=== PATIENT | male | born 1960 | race Caucasian/White ===

== ENCOUNTER 2021-07-01 08:36 | Inpatient (IN) ==
[2021-07-01] MEDS ORDERED: Isovue-370 500 ML BOTTLE IVP ONE ×2 (09:22→09:43)
[2021-07-01] MEDS ORDERED: 0.9 % Sodium Chloride 1,000 ML IVC ONE ×2 (09:22→12:07)
[2021-07-01 09:28] LABS: Basophils % 0.1 %; Eosinophils % 0.1 %; Hematocrit 28.9 % (37.5-50.1); Hemoglobin 9.2 g/dL (12.9-16.9); Immature Granulocytes % 0.4 % (0-4); Lymphocytes # 0.7 K/mcL (0.6-4.6); Lymphocytes % 3.4 %; Mean Corpuscular HGB Conc 31.8 g/dL (31.6-35.5); Mean Corpuscular Hemoglobin 24.5 pg (28.0-33.3); Mean Corpuscular Volume 77.1 fL (83.0-100.0); Mean Platelet Volume 10.2 fL (9.4-12.4); Monocytes # 1.4 K/mcL (0.0-1.3); Neutrophils # 17.8 K/mcL (1.6-8.9); Platelet Count 510 K/mcL (140-400); Red Blood Count 3.75 M/mcL (4.19-5.50); Red Cell Distribution Width 19.4 % (11.5-14.5); White Blood Count 20.1 K/mcL (4.3-11.1)
[2021-07-01 09:36] LABS: INR 1.4; Prothrombin Time 15.2 Seconds (9.4-12.1)
[2021-07-01 09:38] LABS: Activated Partial Thrombo Time 30.1 Seconds (26.0-36.0)
[2021-07-01 09:46] LABS: BUN/Creatinine Ratio 25 (6-26); Blood Urea Nitrogen 16 mg/dL (8-23); Calcium 8.5 mg/dL (8.6-10.3); Carbon Dioxide 35 mEq/L (23-29); Chloride 88 mEq/L (98-107); Glucose 102 mg/dL (70-105); Osmolality,Calculated 267 (280-300); Potassium 3.6 mEq/L (3.5-5.1); Sodium 128 mEq/L (136-145); eGFR For African Americans > 60 (> 60); eGFR For Non-African Americans > 60 (> 60)
[2021-07-01] MEDS ORDERED: Piperacillin/Tazobactam 3.375 GM in 0.9 % Sodium Chloride Mini Bag 100 ML IVPB ONE (11:22)
[2021-07-01 11:51] LABS: Bacteria,Urine Few per hpf (None-Few); Bilirubin,Urine Negative (Negative); Blood,Urine Negative (Negative); Clarity,Urine Clear (Clear); Color,Urine Yellow (Yellow); Glucose,Urine (UA) Normal (Normal); Ketones,Urine Negative (Negative); Leukocyte Esterase,Urine Negative (Negative); Mucus,Urine Few per lpf (None-Few); Nitrite,Urine Negative (Negative); Protein,Urine 30 mg/dL (Neg-Trace); RBC,Urine 0-3 per hpf (0-3); Specific Gravity,Urine > 1.030 (1.010-1.025); Squamous Epithelial Cell,Urine Few per hpf (None-Few); Urobilinogen,Urine >=8.0 mg/dL (Normal); WBC,Urine 0-3 per hpf (0-3)
[2021-07-01] MEDS ORDERED: Naloxone 0.4 MG/ML INJ IVP PRN (12:09)
[2021-07-01] MEDS ORDERED: Mag Hydrox/Al Hydrox/Simeth 30 ML UDC PO PRN (12:09)
[2021-07-01] MEDS ORDERED: Ondansetron ODT 4 MG TAB.RAPDIS SL PRN (12:09)
[2021-07-01] MEDS ORDERED: Melatonin 3 MG TABLET PO PRN (12:09)
[2021-07-01] MEDS ORDERED: Acetaminophen 325 MG TABLET PO PRN (12:09)
[2021-07-01] MEDS ORDERED: Ipratropium/Albuterol Neb 3 ML IH PRN (13:31)
[2021-07-01 13:43] LABS: Hematocrit 24.9 % (37.5-50.1); Hemoglobin 8.1 g/dL (12.9-16.9)
[2021-07-01 14:06] LABS: Albumin 2.1 g/dL (3.5-5.7); Albumin/Globulin Ratio 0.5 (1.1-2.2); Bilirubin,Direct 0.4 mg/dL (0.0-0.2); Bilirubin,Indirect 0.6 mg/dL (0.0-1.0); Globulin 3.9 g/dL (2.4-3.5)
[2021-07-01 14:07] LABS: % Iron Saturation 7 % (20-55); Iron 14 mcg/dL (65-175); Transferrin 152 mg/dL (203-362)
[2021-07-01 14:18] LABS: Ferritin 320 ng/mL (20-250)
[2021-07-01 15:06] LABS: Influenza A PCR Negative (Negative); Influenza B PCR Negative (Negative); Resp. Syncytial Virus PCR Negative (Negative)
[2021-07-01 15:07] LABS: SARS-CoV-2 by PCR (In House) Negative (Negative)
[2021-07-01] MEDS: Gabapentin 300 MG CAPSULE PO SCH ×2 (16:17→20:52)
[2021-07-01 19:33] LABS: Hematocrit 25.1 % (37.5-50.1); Hemoglobin 8.1 g/dL (12.9-16.9)
[2021-07-01] MEDS: Budesonide/Formoterol 80/4.5 1 PUFF INH IH SCH (20:46)
[2021-07-01] MEDS: Piperacillin/Tazobactam 3.375 GM in 0.9 % Sodium Chloride Mini Bag 100 ML IVPB SCH (20:48)
[2021-07-01] MEDS: rOPINIRole 0.25 MG TABLET PO SCH (20:51)
[2021-07-01] MEDS: Mirtazapine 15 MG TABLET PO SCH (20:52)
[2021-07-01] MEDS: levETIRAcetam 250 MG TABLET PO SCH (20:52)
[2021-07-02 02:48] LABS: Basophils % 0.2 %; Eosinophils # 0.1 K/mcL (0.0-0.6); Eosinophils % 0.4 %; Hematocrit 24.9 % (37.5-50.1); Hematocrit 25.3 % (37.5-50.1); Hemoglobin 8.1 g/dL (12.9-16.9); Hemoglobin 8.2 g/dL (12.9-16.9); Immature Granulocytes % 0.6 % (0-4); Lymphocytes # 1.4 K/mcL (0.6-4.6); Lymphocytes % 7.6 %; Mean Corpuscular HGB Conc 32.9 g/dL (31.6-35.5); Mean Corpuscular Hemoglobin 24.9 pg (28.0-33.3); Mean Corpuscular Volume 75.7 fL (83.0-100.0); Mean Platelet Volume 10.2 fL (9.4-12.4); Monocytes # 1.6 K/mcL (0.0-1.3); Monocytes % 8.9 %; Neutrophils # 14.6 K/mcL (1.6-8.9); Platelet Count 494 K/mcL (140-400); Red Blood Count 3.29 M/mcL (4.19-5.50); Red Cell Distribution Width 19.2 % (11.5-14.5); Segmented Neutrophils % 82.3 %; White Blood Count 17.8 K/mcL (4.3-11.1)
[2021-07-02 02:57] LABS: Alanine Aminotransferase 43 Units/L (7-52); Albumin 1.9 g/dL (3.5-5.7); Albumin/Globulin Ratio 0.5 (1.1-2.2); Alkaline Phosphatase 163 Units/L (34-104); Aspartate Amino Transferase 38 Units/L (13-39); BUN/Creatinine Ratio 15 (6-26); Bilirubin,Total 0.7 mg/dL (0.3-1.0); Blood Urea Nitrogen 11 mg/dL (8-23); Calcium 8.2 mg/dL (8.6-10.3); Carbon Dioxide 33 mEq/L (23-29); Chloride 94 mEq/L (98-107); Glucose 113 mg/dL (70-105); Osmolality,Calculated 268 (280-300); Potassium 3.7 mEq/L (3.5-5.1); Sodium 129 mEq/L (136-145); Total Protein 5.9 g/dL (6.4-8.9); eGFR For African Americans > 60 (> 60); eGFR For Non-African Americans > 60 (> 60)
[2021-07-02] MEDS: Piperacillin/Tazobactam 3.375 GM in 0.9 % Sodium Chloride Mini Bag 100 ML IVPB SCH ×3 (04:38→19:57)
[2021-07-02] MEDS: levETIRAcetam 250 MG TABLET PO SCH ×2 (08:32→19:57)
[2021-07-02] MEDS: Gabapentin 300 MG CAPSULE PO SCH ×3 (08:33→19:57)
[2021-07-02] MEDS ORDERED: *HR* Propofol 200 MG/20 ML VIAL IVP ONE (10:05)
[2021-07-02] MEDS ORDERED: *HR* FentaNYL (PF) 100 MCG/2 ML VIAL ONE (10:05)
[2021-07-02] MEDS ORDERED: Ondansetron 4 MG/2 ML VIAL ONE (10:05)
[2021-07-02] MEDS ORDERED: Lidocaine -MPF 2% 2 ML VIAL ONE (10:05)
[2021-07-02] MEDS ORDERED: *HR* Succinylcholine 200 MG/10 ML VIAL IVP ONE (10:05)
[2021-07-02] MEDS ORDERED: Lidocaine -MPF 4% 5 ML AMPUL ONE (10:05)
[2021-07-02] MEDS ORDERED: *HR* Vasopressin 20 UNIT/ML VIAL ONE (10:32)
[2021-07-02] MEDS: Budesonide/Formoterol 80/4.5 1 PUFF INH IH SCH ×2 (10:53→19:54)
[2021-07-02] MEDS ORDERED: 0.9 % Sodium Chloride 1,000 ML IVC ONE (11:11)
[2021-07-02] MEDS ORDERED: *HR* EPINEPHrine 1 MG/10 ML SYRINGE INTRATRACH PRN (11:33)
[2021-07-02] MEDS ORDERED: Albuterol 2.5 MG/3 ML NEBULIZER IH ONE (12:21)
[2021-07-02] MEDS ORDERED: Albuterol 2.5 MG/3 ML NEBULIZER ONE (12:22)
[2021-07-02] MEDS ORDERED: Albumin 25% 25gram/100mL 25 GM/100 ML IV.SOLN IVPB ONE (13:32)
[2021-07-02] MEDS ORDERED: Ringers Solution, Lactated 1,000 ML IVC ONE (13:39)
[2021-07-02 15:26] LABS: Hematocrit 26.6 % (37.5-50.1); Hemoglobin 8.3 g/dL (12.9-16.9)
[2021-07-02 15:47] LABS: Sodium, Urine 11.7 mEq/L
[2021-07-02 17:37] LABS: Total Protein,Pleural Fluid 3.2 g/dL
[2021-07-02 17:43] LABS: RBC,Pleural Fluid 6000 RBC/mcL
[2021-07-02 18:13] LABS: Appearance of Pleural Fl Cloudy (Clear)
[2021-07-02 18:14] LABS: Basophils,Pleural Fluid 0 %; Eosinophils,Pleural Fluid 0 %; Monocytes,Pleural Fluid 0 %
[2021-07-02] MEDS: rOPINIRole 0.25 MG TABLET PO SCH (19:57)
[2021-07-02] MEDS: Mirtazapine 15 MG TABLET PO SCH (19:57)
[2021-07-02] MEDS: Albumin 25% 25gram/100mL 25 GM/100 ML IV.SOLN IVPB SCH (23:53)
[2021-07-03] MEDS: Piperacillin/Tazobactam 3.375 GM in 0.9 % Sodium Chloride Mini Bag 100 ML IVPB SCH ×3 (04:41→21:23)
[2021-07-03 04:56] LABS: Hematocrit 24.3 % (37.5-50.1); Hemoglobin 7.6 g/dL (12.9-16.9); Mean Corpuscular HGB Conc 31.3 g/dL (31.6-35.5); Mean Corpuscular Hemoglobin 24.4 pg (28.0-33.3); Mean Corpuscular Volume 77.9 fL (83.0-100.0); Mean Platelet Volume 10.4 fL (9.4-12.4); Platelet Count 469 K/mcL (140-400); Red Blood Count 3.12 M/mcL (4.19-5.50); Red Cell Distribution Width 19.2 % (11.5-14.5); White Blood Count 16.1 K/mcL (4.3-11.1)
[2021-07-03 05:17] LABS: Alanine Aminotransferase 31 Units/L (7-52); Albumin 2.1 g/dL (3.5-5.7); Albumin/Globulin Ratio 0.6 (1.1-2.2); Alkaline Phosphatase 128 Units/L (34-104); Aspartate Amino Transferase 24 Units/L (13-39); BUN/Creatinine Ratio 19 (6-26); Bilirubin,Total 0.5 mg/dL (0.3-1.0); Blood Urea Nitrogen 13 mg/dL (8-23); Carbon Dioxide 32 mEq/L (23-29); Chloride 99 mEq/L (98-107); Globulin 3.6 g/dL (2.4-3.5); Glucose 174 mg/dL (70-105); Osmolality,Calculated 286 (280-300); Potassium 3.5 mEq/L (3.5-5.1); Sodium 136 mEq/L (136-145); Total Protein 5.7 g/dL (6.4-8.9); eGFR For African Americans > 60 (> 60); eGFR For Non-African Americans > 60 (> 60)
[2021-07-03] MEDS: Budesonide/Formoterol 80/4.5 1 PUFF INH IH SCH ×2 (07:25→20:52)
[2021-07-03] MEDS: Gabapentin 300 MG CAPSULE PO SCH ×3 (08:05→21:22)
[2021-07-03] MEDS: levETIRAcetam 250 MG TABLET PO SCH ×2 (08:05→21:22)
[2021-07-03] MEDS: Albumin 25% 25gram/100mL 25 GM/100 ML IV.SOLN IVPB SCH ×2 (08:05→17:37)
[2021-07-03 13:14] LABS: Hematocrit 25.9 % (37.5-50.1); Hemoglobin 8.1 g/dL (12.9-16.9); Mean Corpuscular HGB Conc 31.3 g/dL (31.6-35.5); Mean Corpuscular Hemoglobin 24.5 pg (28.0-33.3); Mean Corpuscular Volume 78.2 fL (83.0-100.0); Mean Platelet Volume 10.1 fL (9.4-12.4); Platelet Count 482 K/mcL (140-400); Red Blood Count 3.31 M/mcL (4.19-5.50); Red Cell Distribution Width 19.6 % (11.5-14.5); White Blood Count 21.8 K/mcL (4.3-11.1)
[2021-07-03] MEDS: *HR* Enoxaparin 40 MG/0.4 ML SYRINGE SQ SCH (17:37)
[2021-07-03] MEDS: Mirtazapine 15 MG TABLET PO SCH (21:22)
[2021-07-03] MEDS: rOPINIRole 0.25 MG TABLET PO SCH (21:23)
[2021-07-04] MEDS: Piperacillin/Tazobactam 3.375 GM in 0.9 % Sodium Chloride Mini Bag 100 ML IVPB SCH ×2 (03:11→14:51)
[2021-07-04 03:12] LABS: Basophils % 0.1 %; Eosinophils % 0.2 %; Hematocrit 25.4 % (37.5-50.1); Immature Granulocytes % 0.5 % (0-4); Lymphocytes # 1.5 K/mcL (0.6-4.6); Mean Corpuscular HGB Conc 31.5 g/dL (31.6-35.5); Mean Corpuscular Hemoglobin 24.5 pg (28.0-33.3); Mean Corpuscular Volume 77.7 fL (83.0-100.0); Mean Platelet Volume 9.8 fL (9.4-12.4); Monocytes # 1.5 K/mcL (0.0-1.3); Monocytes % 9.8 %; Platelet Count 472 K/mcL (140-400); Red Blood Count 3.27 M/mcL (4.19-5.50); Red Cell Distribution Width 19.4 % (11.5-14.5); Segmented Neutrophils % 79.4 %; White Blood Count 15.2 K/mcL (4.3-11.1)
[2021-07-04 03:58] LABS: BUN/Creatinine Ratio 18 (6-26); Blood Urea Nitrogen 10 mg/dL (8-23); Calcium 7.9 mg/dL (8.6-10.3); Carbon Dioxide 35 mEq/L (23-29); Chloride 99 mEq/L (98-107); Glucose 98 mg/dL (70-105); Osmolality,Calculated 281 (280-300); Potassium 3.3 mEq/L (3.5-5.1); Sodium 136 mEq/L (136-145); eGFR For African Americans > 60 (> 60); eGFR For Non-African Americans > 60 (> 60)
[2021-07-04] MEDS ORDERED: Vancomycin 500 MG in 0.9 % Sodium Chloride Mini Bag 100 ML IVPB ONE (04:30)
[2021-07-04] MEDS ORDERED: Potassium Chloride Elixir 20 MEQ/15 ML UDC PO ONE ×2 (07:37→09:16)
[2021-07-04] MEDS: Budesonide/Formoterol 80/4.5 1 PUFF INH IH SCH ×2 (08:11→20:46)
[2021-07-04] MEDS: Gabapentin 300 MG CAPSULE PO SCH ×3 (09:27→20:44)
[2021-07-04] MEDS: levETIRAcetam 250 MG TABLET PO SCH ×2 (09:27→20:44)
[2021-07-04] MEDS ORDERED: Sennosides/Docusate Sodium TABLET PO PRN (09:39)
[2021-07-04] MEDS ORDERED: Vancomycin 1,250 MG/262.5 ML IV.SOLN IVPB SCH (16:00)
[2021-07-04] MEDS: *HR* Enoxaparin 40 MG/0.4 ML SYRINGE SQ SCH (17:25)
[2021-07-04] MEDS: rOPINIRole 0.25 MG TABLET PO SCH (20:44)
[2021-07-04] MEDS: Mirtazapine 15 MG TABLET PO SCH (20:45)
[2021-07-04] MEDS ORDERED: cefTRIAXone 2,000 MG in 0.9 % Sodium Chloride 20 ML IVP SCH (21:00)
[2021-07-05 05:58] LABS: Hematocrit 25.5 % (37.5-50.1); Hemoglobin 8.1 g/dL (12.9-16.9); Mean Corpuscular HGB Conc 31.8 g/dL (31.6-35.5); Mean Corpuscular Hemoglobin 24.6 pg (28.0-33.3); Mean Corpuscular Volume 77.5 fL (83.0-100.0); Mean Platelet Volume 9.8 fL (9.4-12.4); Platelet Count 464 K/mcL (140-400); Red Blood Count 3.29 M/mcL (4.19-5.50); Red Cell Distribution Width 19.9 % (11.5-14.5); White Blood Count 11.5 K/mcL (4.3-11.1)
[2021-07-05 06:55] LABS: BUN/Creatinine Ratio 16 (6-26); Blood Urea Nitrogen 8 mg/dL (8-23); Calcium 8.2 mg/dL (8.6-10.3); Carbon Dioxide 33 mEq/L (23-29); Chloride 100 mEq/L (98-107); Glucose 88 mg/dL (70-105); Osmolality,Calculated 282 (280-300); Potassium 3.6 mEq/L (3.5-5.1); Sodium 137 mEq/L (136-145); eGFR For African Americans > 60 (> 60); eGFR For Non-African Americans > 60 (> 60)
[2021-07-05 07:36] VITALS: BP 97/59; PULSE 60; TEMP 97.7
[2021-07-05] MEDS: Gabapentin 300 MG CAPSULE PO SCH (09:20)
[2021-07-05] MEDS: levETIRAcetam 250 MG TABLET PO SCH (09:20)
[2021-07-05] MEDS: Budesonide/Formoterol 80/4.5 1 PUFF INH IH SCH (09:44)
[2021-07-05 11:33] LABS: Cholesterol,Body Fluid 24 mg/dL; Fluid Source for Cholesterol PLEURAL FLUID; Fluid Source for Triglycerides PLEURAL FLUID; Triglycerides,Body Fluid 17 mg/dL
[2021-07-05 12:22] VITALS: O2SAT 98
== END 2021-07-05 20:01 | disposition home or self-care (01) | DRG 720 ==
LOC: SUATTDRO → 2NENU 08:36 → EMEROOARM 08:36 → SUATTDRO 12:26 → 2NENU 13:49
PROVIDERS: ADMIT Family Medicine; ATTEND Internal Medicine

== ENCOUNTER 2021-10-29 14:21 | Inpatient (IN) ==
[2021-10-29] MEDS ORDERED: Iopamidol - 370 500 ML MLS IVP ONE (15:09)
[2021-10-29] MEDS ORDERED: cefTRIAXone 1,000 MG in Water for inj. (sterile) 10 ML IVP ONE (15:09)
[2021-10-29] MEDS ORDERED: 0.9 % Sodium Chloride 1,000 ML IV ONE ×2 (15:22→19:06)
[2021-10-29 15:43] LABS: INR 1.2; Prothrombin Time 13.9 Seconds (9.4-12.1)
[2021-10-29 15:45] LABS: Activated Partial Thrombo Time 32.9 Seconds (26.0-36.0)
[2021-10-29 15:46] LABS: Basophils % 0.2 %; Eosinophils % 0.2 %; Hematocrit 32.5 % (37.5-50.1); Hemoglobin 9.9 g/dL (12.9-16.9); Immature Granulocytes % 0.7 % (0-4); Lymphocytes # 1.6 K/mcL (0.6-4.6); Lymphocytes % 7.2 %; Mean Corpuscular HGB Conc 30.5 g/dL (31.6-35.5); Mean Corpuscular Hemoglobin 24.5 pg (28.0-33.3); Mean Corpuscular Volume 80.4 fL (83.0-100.0); Mean Platelet Volume 11.3 fL (9.4-12.4); Monocytes # 1.3 K/mcL (0.0-1.3); Neutrophils # 18.5 K/mcL (1.6-8.9); Platelet Count 467 K/mcL (140-400); Red Blood Count 4.04 M/mcL (4.19-5.50); Segmented Neutrophils % 85.7 %; White Blood Count 21.5 K/mcL (4.3-11.1)
[2021-10-29 15:59] LABS: Alanine Aminotransferase 30 Units/L (7-52); Albumin 2.2 g/dL (3.5-5.7); Albumin/Globulin Ratio 0.4 (1.1-2.2); Alkaline Phosphatase 180 Units/L (34-104); Aspartate Amino Transferase 40 Units/L (13-39); BUN/Creatinine Ratio 30 (6-26); Bilirubin,Direct 0.5 mg/dL (0.0-0.2); Bilirubin,Indirect 0.4 mg/dL (0.0-1.0); Bilirubin,Total 0.9 mg/dL (0.3-1.0); Blood Urea Nitrogen 22 mg/dL (8-23); Carbon Dioxide 37 mEq/L (23-29); Chloride 90 mEq/L (98-107); Globulin 5.9 g/dL (2.4-3.5); Glucose 144 mg/dL (70-105); Osmolality,Calculated 278 (280-300); Potassium 3.5 mEq/L (3.5-5.1); Sodium 131 mEq/L (136-145); Total Protein 8.1 g/dL (6.4-8.9); Troponin I 0.03 ng/mL (< 0.04)
[2021-10-29] MEDS ORDERED: Ondansetron ODT 4 MG TAB.RAPDIS SL PRN (17:42)
[2021-10-29] MEDS ORDERED: Acetaminophen 325 MG TABLET PO PRN (17:42)
[2021-10-29] MEDS ORDERED: Naloxone 0.4 MG/ML INJ IVP PRN (17:42)
[2021-10-29] MEDS ORDERED: Melatonin 3 MG TABLET PO PRN (17:42)
[2021-10-29] MEDS: MetroNIDAZOLE 500 MG/100 ML 500 MG/100 ML BAG IVPB SCH ×2 (18:29→23:33)
[2021-10-29] MEDS ORDERED: 0.9 % Sodium Chloride 500 ML IVC ONE (19:55)
[2021-10-29] MEDS: Budesonide/Formoterol 80/4.5 1 PUFF INH IH SCH (20:38)
[2021-10-29 20:40] LABS: VBG HCO3 30 mEq/L (21-27); VBG PCO2 36 mmHg (41-51); VBG PH 7.52 pH Units (7.32-7.42); VBG PO2 200 mmHg (25-50)
[2021-10-29 20:41] LABS: Ethanol < 10 mg/dL (Less than 10)
[2021-10-29] MEDS: rOPINIRole 0.25 MG TABLET PO SCH (20:43)
[2021-10-29] MEDS: levETIRAcetam 250 MG TABLET PO SCH (20:43)
[2021-10-29 22:27] LABS: Bilirubin,Urine Negative (Negative); Blood,Urine Trace (Negative); Clarity,Urine Clear (Clear); Color,Urine Yellow (Yellow); Glucose,Urine (UA) Normal (Normal); Hyaline Casts,Urine Few per lpf (None Seen); Ketones,Urine Negative (Negative); Leukocyte Esterase,Urine Negative (Negative); Mucus,Urine Few per lpf (None-Few); Nitrite,Urine Negative (Negative); PH,Urine 5.5 pH Units (5.0-8.0); Protein,Urine 50 mg/dL (Neg-Trace); RBC,Urine 15-30 per hpf (0-3); Specific Gravity,Urine > 1.030 (1.010-1.025); WBC,Urine 0-3 per hpf (0-3)
[2021-10-29 22:33] LABS: Thyroid Stimulating Hormone 3.669 mcIU/mL (0.340-5.600)
[2021-10-29] MEDS: Cefepime HCl 2,000 MG in 0.9 % Sodium Chloride 10 ML IVP SCH (23:34)
[2021-10-30 03:06] LABS: Basophils % 0.1 %; Eosinophils % 0.1 %; Hematocrit 24.5 % (37.5-50.1); Immature Granulocytes % 0.7 % (0-4); Lymphocytes # 1.6 K/mcL (0.6-4.6); Lymphocytes % 7.7 %; Mean Corpuscular HGB Conc 31.8 g/dL (31.6-35.5); Mean Corpuscular Volume 78.5 fL (83.0-100.0); Monocytes # 1.6 K/mcL (0.0-1.3); Monocytes % 7.8 %; Neutrophils # 17.4 K/mcL (1.6-8.9); Platelet Count 410 K/mcL (140-400); Red Blood Count 3.12 M/mcL (4.19-5.50); Red Cell Distribution Width 19.9 % (11.5-14.5); Segmented Neutrophils % 83.6 %; White Blood Count 20.8 K/mcL (4.3-11.1)
[2021-10-30 03:12] LABS: Hemoglobin 7.8 g/dL (12.9-16.9)
[2021-10-30 03:14] LABS: INR 1.3; Prothrombin Time 14.7 Seconds (9.4-12.1)
[2021-10-30 03:27] LABS: Alanine Aminotransferase 19 Units/L (7-52); Albumin 1.7 g/dL (3.5-5.7); Albumin/Globulin Ratio 0.4 (1.1-2.2); Alkaline Phosphatase 126 Units/L (34-104); Aspartate Amino Transferase 23 Units/L (13-39); BUN/Creatinine Ratio 34 (6-26); Bilirubin,Total 0.8 mg/dL (0.3-1.0); Blood Urea Nitrogen 19 mg/dL (8-23); Carbon Dioxide 34 mEq/L (23-29); Chloride 98 mEq/L (98-107); Globulin 4.4 g/dL (2.4-3.5); Glucose 92 mg/dL (70-105); Osmolality,Calculated 278 (280-300); Potassium 3.5 mEq/L (3.5-5.1); Sodium 133 mEq/L (136-145); Total Protein 6.1 g/dL (6.4-8.9)
[2021-10-30] MEDS: MetroNIDAZOLE 500 MG/100 ML 500 MG/100 ML BAG IVPB SCH ×2 (05:57→12:08)
[2021-10-30] MEDS: Budesonide/Formoterol 80/4.5 1 PUFF INH IH SCH ×2 (07:27→20:35)
[2021-10-30] MEDS: levETIRAcetam 250 MG TABLET PO SCH ×2 (09:01→20:52)
[2021-10-30] MEDS: Cefepime HCl 2,000 MG in 0.9 % Sodium Chloride 10 ML IVP SCH (09:02)
[2021-10-30] MEDS: Piperacillin/Tazobactam 3.375 GM in 0.9 % Sodium Chloride Mini Bag 100 ML IVPB SCH ×2 (16:54→23:51)
[2021-10-30 18:11] LABS: A.calcoaceticus-baumannii cplx Not Detected (Not Detect); Bacteroides fragilis by PCR Not Detected (Not Detect); CTX-M ESBL Gene Not Detected (Not Detect); Candida albicans by PCR Not Detected (Not Detect); Candida auris by PCR Not Detected (Not Detect); Candida glabrata by PCR Not Detected (Not Detect); Candida krusei by PCR Not Detected (Not Detect); Candida parapsilosis by PCR Not Detected (Not Detect); Candida tropicalis by PCR Not Detected (Not Detect); Crypto. neoformans/gattii PCR Not Detected (Not Detect); Enterobacter cloacae Cmplx PCR Not Detected (Not Detect); Enterobacterales by PCR Not Detected (Not Detect); Enterococcus faecalis by PCR Not Detected (Not Detect); Enterococcus faecium by PCR Not Detected (Not Detect); Escherichia coli by PCR Not Detected (Not Detect); IMP Carbapenem-Resist Gene Not Detected (Not Detect); Klebs. pneumoniae group by PCR Not Detected (Not Detect); Klebsiella aerogenes by PCR Not Detected (Not Detect); Klebsiella oxytoca by PCR Not Detected (Not Detect); NDM Carbapenem-Resist Gene Not Detected (Not Detect); OXA-48-like Carbap-Resist Gene Not Detected (Not Detect); Proteus by PCR Not Detected (Not Detect); Pseudomonas aeruginosa by PCR Not Detected (Not Detect); Salmonella species by PCR Not Detected (Not Detect); Serratia marcescens by PCR Not Detected (Not Detect); Staph epidermidis by PCR Not Detected (Not Detect); Staph lugdunensis by PCR Not Detected (Not Detect); Staphylococcus aureus by PCR Not Detected (Not Detect); Staphylococcus by PCR DETECTED (Not Detect); Stenotrophomonas maltophilia Not Detected (Not Detect); Streptococcus agalactiae(B)PCR Not Detected (Not Detect); Streptococcus by PCR Not Detected (Not Detect); Streptococcus pneumoniae PCR Not Detected (Not Detect); Streptococcus pyogenes (A) PCR Not Detected (Not Detect); VIM Carbapenem-Resist Gene Not Detected (Not Detect); blaKPC Carbapenem-Resist Gene Not Detected (Not Detect); mcr-1 Colistin-Resist Gene Not Detected (Not Detect); mecA/C & MREJ (MRSA) Gene Not Detected (Not Detect); mecA/C Methicillin-Resist Gene Not Detected (Not Detect); vanA/B Vancomycin-Resist Genes Not Detected (Not Detect)
[2021-10-30] MEDS: rOPINIRole 0.25 MG TABLET PO SCH (20:51)
[2021-10-31 02:59] LABS: Hematocrit 24.9 % (37.5-50.1); Mean Corpuscular HGB Conc 32.1 g/dL (31.6-35.5); Mean Corpuscular Volume 77.8 fL (83.0-100.0); Platelet Count 426 K/mcL (140-400); Red Cell Distribution Width 19.8 % (11.5-14.5); White Blood Count 18.2 K/mcL (4.3-11.1)
[2021-10-31 03:35] LABS: BUN/Creatinine Ratio 29 (6-26); Blood Urea Nitrogen 15 mg/dL (8-23); Calcium 8.7 mg/dL (8.6-10.3); Carbon Dioxide 30 mEq/L (23-29); Chloride 96 mEq/L (98-107); Glucose 103 mg/dL (70-105); Magnesium 1.6 mg/dL (1.6-2.6); Osmolality,Calculated 273 (280-300); Potassium 3.2 mEq/L (3.5-5.1); Sodium 131 mEq/L (136-145)
[2021-10-31] MEDS ORDERED: Levalbuterol Neb 1.25 MG/3 ML ONE (04:42)
[2021-10-31] MEDS ORDERED: *HR* Metoprolol 5 MG/5 ML VIAL IVP ONE ×2 (04:43→04:45)
[2021-10-31] MEDS ORDERED: Morphine Sulfate 2 MG/ML SYRINGE IVP ONE (04:45)
[2021-10-31] MEDS ORDERED: Morphine Sulfate 2 MG/ML SYRINGE ONE (04:46)
[2021-10-31] MEDS ORDERED: methylPREDNISolone 125 MG/2 ML VIAL IVP ONE (04:47)
[2021-10-31] MEDS ORDERED: methylPREDNISolone 125 MG/2 ML VIAL ONE (04:48)
[2021-10-31] MEDS ORDERED: Artificial Tears SOLN 15 ML BOTTLE BOTH EYES PRN (05:00)
[2021-10-31] MEDS ORDERED: *HR* Etomidate 20 MG/10 ML AMPUL IVP ONE (05:17)
[2021-10-31] MEDS ORDERED: *HR* Midazolam HCl 5 MG/5 ML VIAL IVP ONE ×2 (05:17→10:49)
[2021-10-31] MEDS ORDERED: *HR* Succinylcholine 200 MG/10 ML VIAL IVP ONE (05:17)
[2021-10-31] MEDS ORDERED: *HR* Rocuronium Bromide 50 MG/5 ML VIAL IVP ONE (05:17)
[2021-10-31] MEDS: FentaNYL (PF) 1,000 MCG/100 ML IV.SOLN IVC SCH ×2 (05:58→13:04)
[2021-10-31] MEDS ORDERED: *HR* Metoprolol 5 MG/5 ML VIAL IVP PRN (06:07)
[2021-10-31 06:11] LABS: ABG Base Excess 4 mEq/L (-2 to 3); ABG HCO3 33 mEq/L (21-27); ABG Oxygen Saturation 96 % (95-98); ABG PCO2 78 mmHg (35-45); ABG PH 7.23 pH Units (7.32-7.45); ABG PO2 101 mmHg (85-104); ABG TCO2 35 mEq/L (20-26); Blood Gas Modality ASSIST CONTROL; Blood Gas VT 500 cc
[2021-10-31] MEDS ORDERED: Potassium Chloride Elixir 20 MEQ/15 ML UDC GTUBE ONE (06:34)
[2021-10-31] MEDS: Budesonide/Formoterol 80/4.5 1 PUFF INH IH SCH ×2 (07:43→19:45)
[2021-10-31] MEDS: Ipratropium/Albuterol Neb 3 ML IH SCH ×5 (07:43→23:07)
[2021-10-31] MEDS: levETIRAcetam 250 MG TABLET PO SCH ×2 (07:55→21:26)
[2021-10-31] MEDS: Chlorhexidine Rinse 15 ML MOUTHWASH MM SCH ×2 (07:55→21:27)
[2021-10-31] MEDS: Artificial Tears SOLN 15 ML BOTTLE BOTH EYES SCH ×4 (07:55→21:25)
[2021-10-31] MEDS: Piperacillin/Tazobactam 3.375 GM in 0.9 % Sodium Chloride Mini Bag 100 ML IVPB SCH ×2 (07:55→15:45)
[2021-10-31] MEDS: Norepinephrine 4 MG/254 ML IV.SOLN IVC SCH (10:13)
[2021-10-31] MEDS ORDERED: *HR* Midazolam HCl 2 MG/2 ML VIAL IVP ONE (10:49)
[2021-10-31] MEDS: Pantoprazole 40 MG VIAL IVP SCH (11:18)
[2021-10-31] MEDS ORDERED: Heparin 1,000 UNITS/500 mL 500 ML ONE (12:07)
[2021-10-31] MEDS ORDERED: Albumin Human 5% 25.0 GM/500 ML IV.SOLN ONE ×2 (12:54→15:45)
[2021-10-31] MEDS ORDERED: *HR* Vasopressin 20 UNIT/ML VIAL ONE (12:55)
[2021-10-31] MEDS ORDERED: *HR* Rocuronium Bromide 50 MG/5 ML VIAL ONE ×4 (12:56→16:33)
[2021-10-31] MEDS ORDERED: *HR* Midazolam HCl 2 MG/2 ML VIAL ONE ×2 (12:57→16:17)
[2021-10-31] MEDS ORDERED: EPINEPHrine 1 MG/ML VIAL ONE (12:59)
[2021-10-31] MEDS ORDERED: *HR* Propofol 200 MG/20 ML VIAL IVP ONE (13:01)
[2021-10-31] MEDS ORDERED: Vancomycin 1,000 MG VIAL ONE (14:04)
[2021-10-31] MEDS ORDERED: Fluconazole 400 MG/200 ML 400 MG/200 ML BAG IVPB ONE (14:11)
[2021-10-31] MEDS ORDERED: Vancomycin 1,000 MG in Sodium Chloride IRRigation 250 ML IR ONE (14:11)
[2021-10-31] MEDS ORDERED: DESMOPRESSIN ACETATE IVPB ONE (15:12)
[2021-10-31] MEDS ORDERED: SODIUM CHLORIDE 0.9% IVPB ONE (15:12)
[2021-10-31] MEDS ORDERED: Amiodarone Premix 360 MG/200 ML BAG IVC ONE (15:16)
[2021-10-31] MEDS ORDERED: Amiodarone Premix 150 MG/100 ML BAG IVPB ONE (15:16)
[2021-10-31] MEDS ORDERED: Ketamine HCL *QUVA* 50mg (1mL) SYRINGE ONE (17:21)
[2021-10-31] MEDS ORDERED: 0.9 % Sodium Chloride 1,000 ML IVC SCH (21:15)
[2021-10-31] MEDS ORDERED: Amiodarone Premix 360 MG/200 ML BAG IVC SCH (21:16)
[2021-10-31] MEDS: Albumin Human 5% 12.5 GM/250 ML IV.SOLN IVC STA ×2 (21:23→21:49)
[2021-10-31] MEDS: Docusate Oral Soln 100 MG/10 ML UDC PO SCH (21:25)
[2021-10-31] MEDS: rOPINIRole 0.25 MG TABLET PO SCH (21:26)
[2021-11-01] MEDS ORDERED: 0.9 % Sodium Chloride 1,000 ML IVC ONE (00:20)
[2021-11-01] MEDS: Piperacillin/Tazobactam 3.375 GM in 0.9 % Sodium Chloride Mini Bag 100 ML IVPB SCH ×3 (00:28→16:42)
[2021-11-01] MEDS: Artificial Tears SOLN 15 ML BOTTLE BOTH EYES SCH ×6 (00:29→20:09)
[2021-11-01 02:23] LABS: Alanine Aminotransferase 9 Units/L (7-52); Albumin 2.1 g/dL (3.5-5.7); Albumin/Globulin Ratio 0.8 (1.1-2.2); Alkaline Phosphatase 73 Units/L (34-104); Aspartate Amino Transferase 13 Units/L (13-39); BUN/Creatinine Ratio 32 (6-26); Bilirubin,Direct 0.4 mg/dL (0.0-0.2); Bilirubin,Indirect 0.3 mg/dL (0.0-1.0); Bilirubin,Total 0.7 mg/dL (0.3-1.0); Blood Urea Nitrogen 24 mg/dL (8-23); Calcium 8.2 mg/dL (8.6-10.3); Carbon Dioxide 26 mEq/L (23-29); Chloride 105 mEq/L (98-107); Globulin 2.7 g/dL (2.4-3.5); Glucose 209 mg/dL (70-105); Magnesium 1.8 mg/dL (1.6-2.6); Osmolality,Calculated 290 (280-300); Phosphorous 4.4 mg/dL (2.7-4.5); Potassium 3.9 mEq/L (3.5-5.1); Sodium 135 mEq/L (136-145); Total Protein 4.8 g/dL (6.4-8.9)
[2021-11-01 02:25] LABS: INR 1.8; Prothrombin Time 20.4 Seconds (9.4-12.1)
[2021-11-01] MEDS: Norepinephrine 4 MG/254 ML IV.SOLN IVC SCH ×2 (02:33→21:44)
[2021-11-01] MEDS: FentaNYL (PF) 1,000 MCG/100 ML IV.SOLN IVC SCH ×3 (02:34→20:07)
[2021-11-01 03:39] LABS: Basophils % 0.1 %; Hematocrit 18.3 % (37.5-50.1); Immature Granulocytes % 0.7 % (0-4); Lymphocytes # 1.5 K/mcL (0.6-4.6); Lymphocytes % 10.1 %; Mean Corpuscular HGB Conc 32.8 g/dL (31.6-35.5); Mean Corpuscular Hemoglobin 26.4 pg (28.0-33.3); Mean Corpuscular Volume 80.6 fL (83.0-100.0); Mean Platelet Volume 11.2 fL (9.4-12.4); Monocytes # 0.8 K/mcL (0.0-1.3); Monocytes % 5.7 %; Neutrophils # 12.1 K/mcL (1.6-8.9); Platelet Count 259 K/mcL (140-400); Red Blood Count 2.27 M/mcL (4.19-5.50); Red Cell Distribution Width 17.8 % (11.5-14.5); Segmented Neutrophils % 83.4 %; White Blood Count 14.5 K/mcL (4.3-11.1)
[2021-11-01] MEDS: Ipratropium/Albuterol Neb 3 ML IH SCH ×4 (04:05→15:44)
[2021-11-01 04:39] LABS: ABG Base Excess 1 mEq/L (-2 to 3); ABG HCO3 26 mEq/L (21-27); ABG Oxygen Saturation 100 % (95-98); ABG PCO2 40 mmHg (35-45); ABG PH 7.41 pH Units (7.32-7.45); ABG PO2 296 mmHg (85-104); ABG TCO2 27 mEq/L (20-26); Blood Gas Modality ASSIST CONTROL; Blood Gas VT 500 cc
[2021-11-01] MEDS ORDERED: 0.9 % Sodium Chloride 500 ML ONE (04:53)
[2021-11-01] MEDS: Budesonide/Formoterol 80/4.5 1 PUFF INH IH SCH (07:35)
[2021-11-01] MEDS: Chlorhexidine Rinse 15 ML MOUTHWASH MM SCH ×2 (09:42→20:09)
[2021-11-01] MEDS: Pantoprazole 40 MG VIAL IVP SCH (09:42)
[2021-11-01] MEDS: Docusate Oral Soln 100 MG/10 ML UDC PO SCH ×2 (10:24→20:10)
[2021-11-01 16:54] LABS: Hematocrit 25.1 % (37.5-50.1); Hemoglobin 8.5 g/dL (12.9-16.9)
[2021-11-01] MEDS ORDERED: 0.9 % Sodium Chloride 1,000 ML IVC SCH (17:57)
[2021-11-01] MEDS ORDERED: Acetaminophen 325 MG TABLET PO PRN (17:57)
[2021-11-01] MEDS ORDERED: Ondansetron ODT 4 MG TAB.RAPDIS SL PRN (17:57)
[2021-11-01] MEDS ORDERED: Melatonin 3 MG TABLET PO PRN (17:57)
[2021-11-01] MEDS ORDERED: Artificial Tears SOLN 15 ML BOTTLE BOTH EYES PRN (19:45)
[2021-11-01] MEDS ORDERED: Ipratropium/Albuterol Neb 3 ML IH PRN (19:46)
[2021-11-01] MEDS: 0.9 % Sodium Chloride 1,000 ML IVC SCH (20:08)
[2021-11-01] MEDS: rOPINIRole 0.25 MG TABLET PO SCH (20:10)
[2021-11-02] MEDS: Artificial Tears SOLN 15 ML BOTTLE BOTH EYES SCH ×6 (00:21→20:31)
[2021-11-02] MEDS: Piperacillin/Tazobactam 3.375 GM in 0.9 % Sodium Chloride Mini Bag 100 ML IVPB SCH ×3 (00:22→16:12)
[2021-11-02] MEDS: FentaNYL (PF) 1,000 MCG/100 ML IV.SOLN IVC SCH (03:00)
[2021-11-02 03:27] LABS: ABG Base Excess -2 mEq/L (-2 to 3); ABG HCO3 24 mEq/L (21-27); ABG Oxygen Saturation 96 % (95-98); ABG PCO2 46 mmHg (35-45); ABG PH 7.33 pH Units (7.32-7.45); ABG PO2 88 mmHg (85-104); ABG TCO2 26 mEq/L (20-26); Blood Gas VT 400 cc
[2021-11-02 04:22] LABS: Hematocrit 26.5 % (37.5-50.1); Hemoglobin 8.7 g/dL (12.9-16.9); Mean Corpuscular HGB Conc 32.8 g/dL (31.6-35.5); Mean Corpuscular Hemoglobin 26.3 pg (28.0-33.3); Mean Corpuscular Volume 80.1 fL (83.0-100.0); Mean Platelet Volume 11.3 fL (9.4-12.4); Platelet Count 249 K/mcL (140-400); Red Blood Count 3.31 M/mcL (4.19-5.50); Red Cell Distribution Width 17.7 % (11.5-14.5); Segmented Neutrophils % 81.2 %; White Blood Count 15.1 K/mcL (4.3-11.1)
[2021-11-02 04:23] LABS: Basophils % 0.1 %; Eosinophils # 0.1 K/mcL (0.0-0.6); Eosinophils % 0.3 %; Immature Granulocytes % 0.6 % (0-4); Lymphocytes # 1.7 K/mcL (0.6-4.6); Lymphocytes % 11.3 %; Monocytes % 6.5 %; Neutrophils # 12.3 K/mcL (1.6-8.9)
[2021-11-02 04:30] LABS: VBG Ionized Calcium 1.25 mmol/L (1.15-1.35)
[2021-11-02 04:43] LABS: Alanine Aminotransferase 10 Units/L (7-52); Albumin/Globulin Ratio 0.6 (1.1-2.2); Alkaline Phosphatase 74 Units/L (34-104); Aspartate Amino Transferase 15 Units/L (13-39); BUN/Creatinine Ratio 34 (6-26); Bilirubin,Direct 0.4 mg/dL (0.0-0.2); Bilirubin,Indirect 0.4 mg/dL (0.0-1.0); Bilirubin,Total 0.8 mg/dL (0.3-1.0); Blood Urea Nitrogen 27 mg/dL (8-23); Carbon Dioxide 25 mEq/L (23-29); Chloride 107 mEq/L (98-107); Globulin 3.2 g/dL (2.4-3.5); Glucose 87 mg/dL (70-105); Magnesium 1.8 mg/dL (1.6-2.6); Osmolality,Calculated 284 (280-300); Phosphorous 4.1 mg/dL (2.7-4.5); Potassium 3.6 mEq/L (3.5-5.1); Sodium 135 mEq/L (136-145); Total Protein 5.2 g/dL (6.4-8.9)
[2021-11-02 04:45] LABS: INR 1.3; Prothrombin Time 14.6 Seconds (9.4-12.1)
[2021-11-02] MEDS: Norepinephrine 4 MG/254 ML IV.SOLN IVC SCH ×4 (05:32→21:47)
[2021-11-02] MEDS: 0.9 % Sodium Chloride 1,000 ML IVC SCH (07:33)
[2021-11-02] MEDS: Pantoprazole 40 MG VIAL IVP SCH (08:01)
[2021-11-02] MEDS: Docusate Oral Soln 100 MG/10 ML UDC PO SCH ×2 (08:01→20:30)
[2021-11-02] MEDS: Chlorhexidine Rinse 15 ML MOUTHWASH MM SCH ×2 (08:01→20:30)
[2021-11-02] MEDS: Dexmedetomidine HCl 400 MCG/100 ML MLS IVC SCH ×2 (10:47→21:45)
[2021-11-02] MEDS: *HR* Heparin 5,000 UNIT/ML VIAL SQ SCH (17:03)
[2021-11-02 17:40] LABS: Potassium 4.2 mEq/L (3.5-5.1)
[2021-11-02] MEDS: rOPINIRole 0.25 MG TABLET PO SCH (20:23)
[2021-11-02] MEDS: clonazePAM 1 MG TABLET PO PRN (21:52)
[2021-11-03] MEDS: Artificial Tears SOLN 15 ML BOTTLE BOTH EYES SCH ×6 (02:00→19:52)
[2021-11-03] MEDS: Piperacillin/Tazobactam 3.375 GM in 0.9 % Sodium Chloride Mini Bag 100 ML IVPB SCH ×3 (02:03→16:12)
[2021-11-03] MEDS ORDERED: Morphine Sulfate 2 MG/ML SYRINGE IVP ONE (02:25)
[2021-11-03] MEDS: Norepinephrine 4 MG/254 ML IV.SOLN IVC SCH ×2 (03:30→10:18)
[2021-11-03 04:30] LABS: VBG Ionized Calcium 1.11 mmol/L (1.15-1.35)
[2021-11-03 04:34] LABS: Basophils % 0.1 %; Eosinophils % 0.2 %; Hematocrit 27.1 % (37.5-50.1); Hemoglobin 8.8 g/dL (12.9-16.9); Immature Granulocytes % 0.7 % (0-4); Lymphocytes # 1.5 K/mcL (0.6-4.6); Lymphocytes % 8.8 %; Mean Corpuscular HGB Conc 32.5 g/dL (31.6-35.5); Mean Corpuscular Hemoglobin 26.4 pg (28.0-33.3); Mean Corpuscular Volume 81.4 fL (83.0-100.0); Mean Platelet Volume 11.2 fL (9.4-12.4); Monocytes % 5.9 %; Neutrophils # 13.9 K/mcL (1.6-8.9); Platelet Count 273 K/mcL (140-400); Red Blood Count 3.33 M/mcL (4.19-5.50); Red Cell Distribution Width 18.1 % (11.5-14.5); Segmented Neutrophils % 84.3 %; White Blood Count 16.5 K/mcL (4.3-11.1)
[2021-11-03 04:48] LABS: Alanine Aminotransferase 16 Units/L (7-52); Albumin/Globulin Ratio 0.6 (1.1-2.2); Alkaline Phosphatase 180 Units/L (34-104); Aspartate Amino Transferase 34 Units/L (13-39); BUN/Creatinine Ratio 30 (6-26); Bilirubin,Direct 0.5 mg/dL (0.0-0.2); Bilirubin,Indirect 0.5 mg/dL (0.0-1.0); Blood Urea Nitrogen 21 mg/dL (8-23); Calcium 7.3 mg/dL (8.6-10.3); Carbon Dioxide 23 mEq/L (23-29); Chloride 105 mEq/L (98-107); Globulin 3.3 g/dL (2.4-3.5); Glucose 88 mg/dL (70-105); Osmolality,Calculated 276 (280-300); Phosphorous 3.8 mg/dL (2.7-4.5); Potassium 4.1 mEq/L (3.5-5.1); Sodium 132 mEq/L (136-145); Total Protein 5.3 g/dL (6.4-8.9)
[2021-11-03] MEDS ORDERED: levETIRAcetam 250 MG TABLET PO SCH (06:00)
[2021-11-03] MEDS: *HR* Heparin 5,000 UNIT/ML VIAL SQ SCH ×2 (06:42→16:16)
[2021-11-03] MEDS: Calcium Gluconate 1gm/50mL 1 GM/50 ML BAG IVPB SCH ×2 (06:43→07:54)
[2021-11-03] MEDS: Pantoprazole 40 MG VIAL IVP SCH (07:53)
[2021-11-03] MEDS: Chlorhexidine Rinse 15 ML MOUTHWASH MM SCH ×2 (07:55→19:52)
[2021-11-03] MEDS: Docusate Oral Soln 100 MG/10 ML UDC PO SCH (07:56)
[2021-11-03] MEDS: FentaNYL (PF) 1,000 MCG/100 ML IV.SOLN IVC SCH (07:56)
[2021-11-03] MEDS: Dexmedetomidine HCl 400 MCG/100 ML MLS IVC SCH (07:57)
[2021-11-03] MEDS ORDERED: Amiodarone Premix 360 MG/200 ML BAG IVC ONE (08:50)
[2021-11-03] MEDS ORDERED: Amiodarone 450 MG in 0.9 % Sodium Chloride Excel Bg 241 ML IVC ONE (08:50)
[2021-11-03] MEDS ORDERED: Amiodarone Premix 150 MG/100 ML BAG IVPB ONE (08:50)
[2021-11-03] MEDS ORDERED: *HR* Midazolam HCl 2 MG/2 ML VIAL IVP ONE ×2 (09:54→12:54)
[2021-11-03] MEDS ORDERED: *HR* FentaNYL (PF) 100 MCG/2 ML VIAL IVP ONE ×2 (09:54→12:20)
[2021-11-03] MEDS ORDERED: D10% in Water 500 ML IVC PRN (10:00)
[2021-11-03] MEDS ORDERED: Lidocaine Viscous Oral Soln 15 ML SOLUTION ONE (11:34)
[2021-11-03] MEDS ORDERED: *HR* FentaNYL (PF) 100 MCG/2 ML VIAL ONE (12:28)
[2021-11-03] MEDS ORDERED: Lidocaine Viscous Oral Soln 15 ML SOLUTION MM ONE (12:55)
[2021-11-03] MEDS: Amiodarone Premix 360 MG/200 ML BAG IVC SCH (15:07)
[2021-11-03] MEDS ORDERED: Clinimix E 5%-15% SOLUTION 2,000 ML with MVI, adult with vitamin K 10 ML IVC SCH (17:00)
[2021-11-03] MEDS ORDERED: Acetaminophen IV 500 MG/50 ML BAG IVPB ONE (18:13)
[2021-11-03] MEDS: clonazePAM 1 MG TABLET PO PRN (19:52)
[2021-11-04] MEDS: Piperacillin/Tazobactam 3.375 GM in 0.9 % Sodium Chloride Mini Bag 100 ML IVPB SCH ×3 (00:20→16:40)
[2021-11-04] MEDS: Artificial Tears SOLN 15 ML BOTTLE BOTH EYES SCH ×3 (00:21→08:28)
[2021-11-04] MEDS: *HR* Heparin 5,000 UNIT/ML VIAL SQ SCH ×2 (05:11→16:39)
[2021-11-04 05:28] LABS: VBG Ionized Calcium 1.21 mmol/L (1.15-1.35)
[2021-11-04 05:42] LABS: Basophils % 0.2 %; Eosinophils % 0.3 %; Hematocrit 24.6 % (37.5-50.1); Hemoglobin 7.8 g/dL (12.9-16.9); Immature Granulocytes % 0.6 % (0-4); Lymphocytes # 1.5 K/mcL (0.6-4.6); Lymphocytes % 12.1 %; Mean Corpuscular HGB Conc 31.7 g/dL (31.6-35.5); Mean Corpuscular Hemoglobin 26.2 pg (28.0-33.3); Mean Corpuscular Volume 82.6 fL (83.0-100.0); Mean Platelet Volume 11.2 fL (9.4-12.4); Monocytes # 0.8 K/mcL (0.0-1.3); Monocytes % 6.6 %; Neutrophils # 9.9 K/mcL (1.6-8.9); Platelet Count 272 K/mcL (140-400); Red Blood Count 2.98 M/mcL (4.19-5.50); Red Cell Distribution Width 18.4 % (11.5-14.5); Segmented Neutrophils % 80.2 %; White Blood Count 12.3 K/mcL (4.3-11.1)
[2021-11-04 06:03] LABS: Alanine Aminotransferase 13 Units/L (7-52); Albumin 1.9 g/dL (3.5-5.7); Albumin/Globulin Ratio 0.6 (1.1-2.2); Alkaline Phosphatase 126 Units/L (34-104); Aspartate Amino Transferase 18 Units/L (13-39); BUN/Creatinine Ratio 29 (6-26); Bilirubin,Direct 0.3 mg/dL (0.0-0.2); Bilirubin,Indirect 0.4 mg/dL (0.0-1.0); Bilirubin,Total 0.7 mg/dL (0.3-1.0); Blood Urea Nitrogen 16 mg/dL (8-23); Calcium 7.4 mg/dL (8.6-10.3); Carbon Dioxide 26 mEq/L (23-29); Chloride 103 mEq/L (98-107); Globulin 3.4 g/dL (2.4-3.5); Glucose 133 mg/dL (70-105); Magnesium 1.9 mg/dL (1.6-2.6); Osmolality,Calculated 277 (280-300); Phosphorous 2.8 mg/dL (2.7-4.5); Potassium 3.8 mEq/L (3.5-5.1); Sodium 132 mEq/L (136-145); Total Protein 5.3 g/dL (6.4-8.9); Triglycerides 100 mg/dL (< 150)
[2021-11-04] MEDS: Pantoprazole 40 MG VIAL IVP SCH (08:15)
[2021-11-04] MEDS: Chlorhexidine Rinse 15 ML MOUTHWASH MM SCH (08:27)
[2021-11-04] MEDS ORDERED: Ondansetron 4 MG/2 ML VIAL IVP PRN (08:57)
[2021-11-04] MEDS ORDERED: Fat Emulsions 20% 250 ML IVPB SCH ×2 (09:00→17:00)
[2021-11-04] MEDS ORDERED: Vancomycin 1,250 MG/262.5 ML IV.SOLN IVPB SCH (10:00)
[2021-11-04] MEDS: Nicotine 7 MG PATCH.TD24 TD SCH (10:40)
[2021-11-04] MEDS: clonazePAM 1 MG TABLET PO PRN ×2 (10:51→20:09)
[2021-11-04 12:50] LABS: Basophils % 0.1 %; Eosinophils % 0.2 %; Hemoglobin 8.2 g/dL (12.9-16.9); Immature Granulocytes % 0.7 % (0-4); Lymphocytes # 1.4 K/mcL (0.6-4.6); Lymphocytes % 9.9 %; Mean Corpuscular HGB Conc 31.5 g/dL (31.6-35.5); Mean Corpuscular Hemoglobin 26.3 pg (28.0-33.3); Mean Corpuscular Volume 83.3 fL (83.0-100.0); Mean Platelet Volume 11.1 fL (9.4-12.4); Monocytes % 6.7 %; Platelet Count 302 K/mcL (140-400); Red Blood Count 3.12 M/mcL (4.19-5.50); Red Cell Distribution Width 18.6 % (11.5-14.5); Segmented Neutrophils % 82.4 %; White Blood Count 14.5 K/mcL (4.3-11.1)
[2021-11-04] MEDS ORDERED: *HR* Dextrose 50 % in Water (Syg) 50 ML SYRINGE IVP PRN (13:35)
[2021-11-04] MEDS ORDERED: D5% in Water 1,000 ML IVC PRN (13:35)
[2021-11-04] MEDS ORDERED: Dextrose Gel 15 GM/37.5 ML TUBE PO PRN ×2 (13:35)
[2021-11-04] MEDS: Amiodarone Premix 360 MG/200 ML BAG IVC SCH (16:40)
[2021-11-04] MEDS: Insulin LISPRO 300 UNITS/3 ML VIAL SUBQ SCH (16:41)
[2021-11-04] MEDS ORDERED: FAT EMULSIONS 20% IVPB SCH (17:00)
[2021-11-04] MEDS ORDERED: Clinimix E 5%-15% SOLUTION 2,000 ML with MVI, adult with vitamin K 10 ML IV SCH (17:00)
[2021-11-04] MEDS ORDERED: Insulin LISPRO 300 UNITS/3 ML VIAL SUBQ SCH (21:00)
[2021-11-05] MEDS: Piperacillin/Tazobactam 3.375 GM in 0.9 % Sodium Chloride Mini Bag 100 ML IVPB SCH ×4 (00:16→22:50)
[2021-11-05 04:37] LABS: Basophils % 0.1 %; Eosinophils # 0.2 K/mcL (0.0-0.6); Eosinophils % 1.5 %; Hematocrit 24.5 % (37.5-50.1); Hemoglobin 7.7 g/dL (12.9-16.9); Immature Granulocytes % 0.8 % (0-4); Lymphocytes # 1.4 K/mcL (0.6-4.6); Mean Corpuscular HGB Conc 31.4 g/dL (31.6-35.5); Mean Corpuscular Hemoglobin 26.6 pg (28.0-33.3); Mean Corpuscular Volume 84.5 fL (83.0-100.0); Mean Platelet Volume 11.2 fL (9.4-12.4); Monocytes % 8.7 %; Neutrophils # 9.2 K/mcL (1.6-8.9); Platelet Count 283 K/mcL (140-400); Segmented Neutrophils % 76.9 %
[2021-11-05 04:39] LABS: VBG Ionized Calcium 1.17 mmol/L (1.15-1.35)
[2021-11-05] MEDS: *HR* Heparin 5,000 UNIT/ML VIAL SQ SCH ×2 (04:48→17:46)
[2021-11-05 05:34] LABS: BUN/Creatinine Ratio 25 (6-26); Blood Urea Nitrogen 13 mg/dL (8-23); Carbon Dioxide 30 mEq/L (23-29); Chloride 103 mEq/L (98-107); Glucose 141 mg/dL (70-105); Magnesium 1.9 mg/dL (1.6-2.6); Osmolality,Calculated 278 (280-300); Potassium 4.2 mEq/L (3.5-5.1); Sodium 133 mEq/L (136-145)
[2021-11-05 05:35] LABS: Alanine Aminotransferase 11 Units/L (7-52); Albumin 1.8 g/dL (3.5-5.7); Albumin/Globulin Ratio 0.6 (1.1-2.2); Alkaline Phosphatase 97 Units/L (34-104); Aspartate Amino Transferase 14 Units/L (13-39); Bilirubin,Direct 0.1 mg/dL (0.0-0.2); Bilirubin,Indirect 0.3 mg/dL (0.0-1.0); Bilirubin,Total 0.4 mg/dL (0.3-1.0); Calcium 7.4 mg/dL (8.6-10.3); Cholesterol 58 mg/dL (< 200); Globulin 3.2 g/dL (2.4-3.5); Phosphorous 3.4 mg/dL (2.7-4.5); Triglycerides 111 mg/dL (< 150)
[2021-11-05] MEDS: Insulin LISPRO 300 UNITS/3 ML VIAL SUBQ SCH ×2 (08:45→16:00)
[2021-11-05] MEDS: Pantoprazole 40 MG VIAL IVP SCH (08:47)
[2021-11-05] MEDS: Nicotine 7 MG PATCH.TD24 TD SCH (08:47)
[2021-11-05] MEDS: clonazePAM 1 MG TABLET PO PRN ×2 (08:48→19:36)
[2021-11-05] MEDS ORDERED: Famotidine 20 MG TABLET PO SCH (09:00)
[2021-11-05] MEDS ORDERED: *HR* Amiodarone 200 MG TABLET PO SCH (09:00)
[2021-11-05] MEDS ORDERED: FAT EMULSIONS 20% IVPB SCH ×2 (09:00→17:00)
[2021-11-05] MEDS ORDERED: Sennosides/Docusate Sodium TABLET PO SCH (09:00)
[2021-11-05] MEDS ORDERED: *HR* Dextrose 50 % in Water (Syg) 50 ML SYRINGE IVP PRN (12:52)
[2021-11-05] MEDS ORDERED: Dextrose Gel 15 GM/37.5 ML TUBE PO PRN ×2 (12:52)
[2021-11-05] MEDS ORDERED: Ipratropium/Albuterol Neb 3 ML IH PRN (12:52)
[2021-11-05] MEDS ORDERED: Clinimix E 5%-15% SOLUTION 2,000 ML with MVI, adult with vitamin K 10 ML IV SCH ×3 (12:52→17:00)
[2021-11-05] MEDS ORDERED: D5% in Water 1,000 ML IVC PRN (12:52)
[2021-11-05] MEDS ORDERED: D10% in Water 500 ML IVC PRN (12:52)
[2021-11-05] MEDS ORDERED: Ondansetron 4 MG/2 ML VIAL IVP PRN (12:52)
[2021-11-05] MEDS: levETIRAcetam 250 MG TABLET PO SCH (17:47)
[2021-11-05] MEDS ORDERED: levETIRAcetam 250 MG TABLET PO SCH (18:00)
[2021-11-05] MEDS: Sennosides/Docusate Sodium TABLET PO SCH (19:37)
[2021-11-05] MEDS: Famotidine 20 MG TABLET PO SCH (19:38)
[2021-11-05] MEDS ORDERED: Insulin LISPRO 300 UNITS/3 ML VIAL SUBQ SCH (21:00)
[2021-11-05] MEDS ORDERED: Melatonin 3 MG TABLET PO PRN (22:11)
[2021-11-05] MEDS ORDERED: *HR* LORazepam 2 MG/ML VIAL IVP PRN (22:11)
[2021-11-05] MEDS: Melatonin 3 MG TABLET PO SCH (22:50)
[2021-11-06 03:53] LABS: VBG Ionized Calcium 1.19 mmol/L (1.15-1.35)
[2021-11-06 03:54] LABS: Basophils % 0.2 %; Eosinophils # 0.2 K/mcL (0.0-0.6); Eosinophils % 1.9 %; Hematocrit 26.3 % (37.5-50.1); Hemoglobin 8.1 g/dL (12.9-16.9); Immature Granulocytes % 0.9 % (0-4); Lymphocytes # 1.6 K/mcL (0.6-4.6); Lymphocytes % 12.7 %; Mean Corpuscular HGB Conc 30.8 g/dL (31.6-35.5); Mean Corpuscular Hemoglobin 26.6 pg (28.0-33.3); Mean Corpuscular Volume 86.5 fL (83.0-100.0); Mean Platelet Volume 11.2 fL (9.4-12.4); Monocytes # 1.3 K/mcL (0.0-1.3); Neutrophils # 9.5 K/mcL (1.6-8.9); Platelet Count 287 K/mcL (140-400); Red Blood Count 3.04 M/mcL (4.19-5.50); Red Cell Distribution Width 19.4 % (11.5-14.5); Segmented Neutrophils % 74.3 %; White Blood Count 12.8 K/mcL (4.3-11.1)
[2021-11-06 04:11] LABS: Alanine Aminotransferase 14 Units/L (7-52); Albumin 1.9 g/dL (3.5-5.7); Albumin/Globulin Ratio 0.6 (1.1-2.2); Alkaline Phosphatase 89 Units/L (34-104); Aspartate Amino Transferase 19 Units/L (13-39); BUN/Creatinine Ratio 28 (6-26); Bilirubin,Direct 0.1 mg/dL (0.0-0.2); Bilirubin,Indirect 0.2 mg/dL (0.0-1.0); Bilirubin,Total 0.3 mg/dL (0.3-1.0); Blood Urea Nitrogen 14 mg/dL (8-23); Calcium 7.4 mg/dL (8.6-10.3); Carbon Dioxide 32 mEq/L (23-29); Chloride 100 mEq/L (98-107); Globulin 3.4 g/dL (2.4-3.5); Glucose 125 mg/dL (70-105); Magnesium 1.9 mg/dL (1.6-2.6); Osmolality,Calculated 278 (280-300); Phosphorous 3.3 mg/dL (2.7-4.5); Sodium 133 mEq/L (136-145); Total Protein 5.3 g/dL (6.4-8.9)
[2021-11-06] MEDS: levETIRAcetam 250 MG TABLET PO SCH ×2 (05:32→18:44)
[2021-11-06] MEDS: *HR* Heparin 5,000 UNIT/ML VIAL SQ SCH ×2 (05:32→18:44)
[2021-11-06] MEDS: Sennosides/Docusate Sodium TABLET PO SCH ×2 (07:32→20:32)
[2021-11-06] MEDS: Famotidine 20 MG TABLET PO SCH ×2 (07:33→20:32)
[2021-11-06] MEDS: Piperacillin/Tazobactam 3.375 GM in 0.9 % Sodium Chloride Mini Bag 100 ML IVPB SCH ×2 (07:33→15:54)
[2021-11-06] MEDS: Nicotine 7 MG PATCH.TD24 TD SCH (07:43)
[2021-11-06] MEDS: *HR* Amiodarone 200 MG TABLET PO SCH (07:44)
[2021-11-06] MEDS: Insulin LISPRO 300 UNITS/3 ML VIAL SUBQ SCH (07:44)
[2021-11-06] MEDS: Melatonin 3 MG TABLET PO SCH (20:31)
[2021-11-06] MEDS: clonazePAM 1 MG TABLET PO PRN (20:32)
[2021-11-07] MEDS: Piperacillin/Tazobactam 3.375 GM in 0.9 % Sodium Chloride Mini Bag 100 ML IVPB SCH ×3 (01:22→17:08)
[2021-11-07 01:45] LABS: Basophils % 0.3 %; Eosinophils # 0.1 K/mcL (0.0-0.6); Hematocrit 30.7 % (37.5-50.1); Hemoglobin 9.6 g/dL (12.9-16.9); Immature Granulocytes % 0.9 % (0-4); Lymphocytes # 1.8 K/mcL (0.6-4.6); Lymphocytes % 13.9 %; Mean Corpuscular HGB Conc 31.3 g/dL (31.6-35.5); Mean Corpuscular Hemoglobin 26.9 pg (28.0-33.3); Mean Platelet Volume 11.6 fL (9.4-12.4); Monocytes # 1.2 K/mcL (0.0-1.3); Monocytes % 8.8 %; Neutrophils # 9.9 K/mcL (1.6-8.9); Platelet Count 302 K/mcL (140-400); Red Blood Count 3.57 M/mcL (4.19-5.50); Red Cell Distribution Width 19.9 % (11.5-14.5); Segmented Neutrophils % 75.1 %; White Blood Count 13.1 K/mcL (4.3-11.1)
[2021-11-07 02:04] LABS: BUN/Creatinine Ratio 27 (6-26); Blood Urea Nitrogen 15 mg/dL (8-23); Calcium 7.9 mg/dL (8.6-10.3); Carbon Dioxide 33 mEq/L (23-29); Chloride 97 mEq/L (98-107); Glucose 91 mg/dL (70-105); Osmolality,Calculated 274 (280-300); Sodium 132 mEq/L (136-145)
[2021-11-07] MEDS: *HR* Heparin 5,000 UNIT/ML VIAL SQ SCH ×2 (04:49→17:08)
[2021-11-07] MEDS: levETIRAcetam 250 MG TABLET PO SCH ×2 (04:49→17:08)
[2021-11-07] MEDS: Famotidine 20 MG TABLET PO SCH ×2 (08:22→20:16)
[2021-11-07] MEDS: Sennosides/Docusate Sodium TABLET PO SCH ×2 (08:23→20:16)
[2021-11-07] MEDS: *HR* Amiodarone 200 MG TABLET PO SCH (08:23)
[2021-11-07] MEDS: Nicotine 7 MG PATCH.TD24 TD SCH (08:23)
[2021-11-07] MEDS ORDERED: LOK IVPB ONE (08:47)
[2021-11-07] MEDS ORDERED: TAZOBACTAM IVPB ONE (08:47)
[2021-11-07] MEDS ORDERED: PIPERACILLIN IVPB ONE (08:47)
[2021-11-07] MEDS ORDERED: SODIUM CHLORIDE IVPB ONE (08:47)
[2021-11-07] MEDS: *HR* HYDROcodone/Acet 5/325 mg TABLET PO PRN ×2 (15:30→20:17)
[2021-11-07] MEDS: polyethylene glycoL 3350 17 GM POWD.PACK PO SCH (18:45)
[2021-11-07] MEDS: Melatonin 3 MG TABLET PO SCH (20:17)
[2021-11-07] MEDS: Insulin LISPRO 300 UNITS/3 ML VIAL SUBQ SCH (21:07)
[2021-11-07] MEDS: clonazePAM 1 MG TABLET PO PRN (21:23)
[2021-11-08] MEDS: Piperacillin/Tazobactam 3.375 GM in 0.9 % Sodium Chloride Mini Bag 100 ML IVPB SCH ×3 (00:28→16:19)
[2021-11-08] MEDS ORDERED: *HR* Metoprolol 5 MG/5 ML VIAL IVP ONE (01:26)
[2021-11-08] MEDS: *HR* HYDROcodone/Acet 5/325 mg TABLET PO PRN ×4 (01:43→18:47)
[2021-11-08 06:41] LABS: Basophils % 0.2 %; Eosinophils # 0.2 K/mcL (0.0-0.6); Eosinophils % 1.9 %; Hematocrit 31.3 % (37.5-50.1); Hemoglobin 9.8 g/dL (12.9-16.9); Immature Granulocytes % 0.9 % (0-4); Lymphocytes # 2.4 K/mcL (0.6-4.6); Lymphocytes % 19.2 %; Mean Corpuscular HGB Conc 31.3 g/dL (31.6-35.5); Mean Corpuscular Hemoglobin 26.9 pg (28.0-33.3); Mean Platelet Volume 11.6 fL (9.4-12.4); Monocytes # 1.3 K/mcL (0.0-1.3); Monocytes % 10.1 %; Neutrophils # 8.5 K/mcL (1.6-8.9); Platelet Count 337 K/mcL (140-400); Red Blood Count 3.64 M/mcL (4.19-5.50); Red Cell Distribution Width 20.6 % (11.5-14.5); Segmented Neutrophils % 67.7 %; White Blood Count 12.6 K/mcL (4.3-11.1)
[2021-11-08 06:52] LABS: BUN/Creatinine Ratio 25 (6-26); Blood Urea Nitrogen 14 mg/dL (8-23); Calcium 7.9 mg/dL (8.6-10.3); Carbon Dioxide 32 mEq/L (23-29); Chloride 99 mEq/L (98-107); Glucose 97 mg/dL (70-105); Magnesium 1.9 mg/dL (1.6-2.6); Osmolality,Calculated 280 (280-300); Phosphorous 3.3 mg/dL (2.7-4.5); Potassium 3.8 mEq/L (3.5-5.1); Sodium 135 mEq/L (136-145)
[2021-11-08 06:55] LABS: BUN/Creatinine Ratio 25 (6-26); Blood Urea Nitrogen 14 mg/dL (8-23); Calcium 7.9 mg/dL (8.6-10.3); Carbon Dioxide 33 mEq/L (23-29); Chloride 99 mEq/L (98-107); Glucose 95 mg/dL (70-105); Osmolality,Calculated 280 (280-300); Potassium 3.8 mEq/L (3.5-5.1); Sodium 135 mEq/L (136-145)
[2021-11-08] MEDS: *HR* Heparin 5,000 UNIT/ML VIAL SQ SCH ×2 (07:35→18:19)
[2021-11-08] MEDS: *HR* Amiodarone 200 MG TABLET PO SCH (07:35)
[2021-11-08] MEDS: levETIRAcetam 250 MG TABLET PO SCH ×2 (07:35→18:19)
[2021-11-08] MEDS: Nicotine 7 MG PATCH.TD24 TD SCH (07:35)
[2021-11-08] MEDS: Sennosides/Docusate Sodium TABLET PO SCH ×2 (07:35→20:39)
[2021-11-08] MEDS: Famotidine 20 MG TABLET PO SCH ×2 (07:36→20:39)
[2021-11-08] MEDS: polyethylene glycoL 3350 17 GM POWD.PACK PO SCH (09:54)
[2021-11-08] MEDS ORDERED: Lidocaine -MPF 1% 5 ML AMPUL ID ONE (10:02)
[2021-11-08] MEDS: Metoprolol XL (24 HR) Succ 25 MG TAB.ER.24H PO SCH (10:43)
[2021-11-08] MEDS: clonazePAM 1 MG TABLET PO PRN (20:39)
[2021-11-08] MEDS: Melatonin 3 MG TABLET PO SCH (20:39)
[2021-11-09] MEDS: Piperacillin/Tazobactam 3.375 GM in 0.9 % Sodium Chloride Mini Bag 100 ML IVPB SCH ×3 (00:29→16:30)
[2021-11-09] MEDS: *HR* HYDROcodone/Acet 5/325 mg TABLET PO PRN ×4 (03:43→21:06)
[2021-11-09] MEDS: *HR* Heparin 5,000 UNIT/ML VIAL SQ SCH ×2 (07:04→18:17)
[2021-11-09] MEDS: Metoprolol XL (24 HR) Succ 25 MG TAB.ER.24H PO SCH (09:22)
[2021-11-09] MEDS: levETIRAcetam 250 MG TABLET PO SCH ×2 (09:25→21:06)
[2021-11-09] MEDS: Sennosides/Docusate Sodium TABLET PO SCH ×2 (09:25→21:07)
[2021-11-09] MEDS: clonazePAM 1 MG TABLET PO PRN ×2 (09:25→21:07)
[2021-11-09] MEDS: polyethylene glycoL 3350 17 GM POWD.PACK PO SCH (09:25)
[2021-11-09] MEDS: *HR* Amiodarone 200 MG TABLET PO SCH (09:25)
[2021-11-09] MEDS: Famotidine 20 MG TABLET PO SCH ×2 (09:27→21:07)
[2021-11-09] MEDS: Nicotine 7 MG PATCH.TD24 TD SCH (09:39)
[2021-11-09 10:07] LABS: BUN/Creatinine Ratio 21 (6-26); Blood Urea Nitrogen 12 mg/dL (8-23); Carbon Dioxide 29 mEq/L (23-29); Chloride 99 mEq/L (98-107); Glucose 118 mg/dL (70-105); Magnesium 2.1 mg/dL (1.6-2.6); Osmolality,Calculated 275 (280-300); Potassium 4.2 mEq/L (3.5-5.1); Sodium 132 mEq/L (136-145)
[2021-11-09 11:13] LABS: Hematocrit 30.5 % (37.5-50.1); Hemoglobin 9.6 g/dL (12.9-16.9); Mean Corpuscular HGB Conc 31.5 g/dL (31.6-35.5); Mean Corpuscular Hemoglobin 27.5 pg (28.0-33.3); Mean Corpuscular Volume 87.4 fL (83.0-100.0); Mean Platelet Volume 11.3 fL (9.4-12.4); Platelet Count 413 K/mcL (140-400); Red Blood Count 3.49 M/mcL (4.19-5.50); Red Cell Distribution Width 21.2 % (11.5-14.5); White Blood Count 10.4 K/mcL (4.3-11.1)
[2021-11-09] MEDS: Melatonin 3 MG TABLET PO SCH (21:07)
[2021-11-10] MEDS: Piperacillin/Tazobactam 3.375 GM in 0.9 % Sodium Chloride Mini Bag 100 ML IVPB SCH ×4 (00:21→23:54)
[2021-11-10] MEDS: *HR* HYDROcodone/Acet 5/325 mg TABLET PO PRN ×6 (01:06→23:53)
[2021-11-10 02:17] LABS: Hematocrit 27.7 % (37.5-50.1); Hemoglobin 8.6 g/dL (12.9-16.9); Mean Corpuscular Volume 86.8 fL (83.0-100.0); Mean Platelet Volume 11.3 fL (9.4-12.4); Platelet Count 404 K/mcL (140-400); Red Blood Count 3.19 M/mcL (4.19-5.50)
[2021-11-10 02:36] LABS: BUN/Creatinine Ratio 22 (6-26); Blood Urea Nitrogen 13 mg/dL (8-23); Calcium 7.6 mg/dL (8.6-10.3); Carbon Dioxide 29 mEq/L (23-29); Chloride 100 mEq/L (98-107); Glucose 99 mg/dL (70-105); Magnesium 2.2 mg/dL (1.6-2.6); Osmolality,Calculated 276 (280-300); Potassium 4.2 mEq/L (3.5-5.1); Sodium 133 mEq/L (136-145)
[2021-11-10] MEDS: *HR* Heparin 5,000 UNIT/ML VIAL SQ SCH ×2 (05:39→18:14)
[2021-11-10] MEDS: Nicotine 7 MG PATCH.TD24 TD SCH (08:25)
[2021-11-10] MEDS: Metoprolol XL (24 HR) Succ 25 MG TAB.ER.24H PO SCH (08:26)
[2021-11-10] MEDS: *HR* Amiodarone 200 MG TABLET PO SCH (08:26)
[2021-11-10] MEDS: Sennosides/Docusate Sodium TABLET PO SCH ×2 (08:26→19:53)
[2021-11-10] MEDS: levETIRAcetam 250 MG TABLET PO SCH ×2 (08:26→19:53)
[2021-11-10] MEDS: Famotidine 20 MG TABLET PO SCH ×2 (08:26→19:54)
[2021-11-10] MEDS: polyethylene glycoL 3350 17 GM POWD.PACK PO SCH (08:27)
[2021-11-10] MEDS: clonazePAM 1 MG TABLET PO PRN ×2 (11:44→19:54)
[2021-11-10] MEDS: Melatonin 3 MG TABLET PO SCH (19:54)
[2021-11-11 03:47] LABS: Hematocrit 30.6 % (37.5-50.1); Hemoglobin 9.4 g/dL (12.9-16.9); Mean Corpuscular HGB Conc 30.7 g/dL (31.6-35.5); Mean Corpuscular Hemoglobin 26.9 pg (28.0-33.3); Mean Corpuscular Volume 87.4 fL (83.0-100.0); Mean Platelet Volume 11.1 fL (9.4-12.4); Platelet Count 456 K/mcL (140-400); Red Cell Distribution Width 21.2 % (11.5-14.5); White Blood Count 9.7 K/mcL (4.3-11.1)
[2021-11-11 04:05] LABS: BUN/Creatinine Ratio 19 (6-26); Blood Urea Nitrogen 13 mg/dL (8-23); Calcium 7.9 mg/dL (8.6-10.3); Carbon Dioxide 28 mEq/L (23-29); Chloride 99 mEq/L (98-107); Glucose 90 mg/dL (70-105); Magnesium 2.1 mg/dL (1.6-2.6); Osmolality,Calculated 274 (280-300); Sodium 132 mEq/L (136-145)
[2021-11-11] MEDS: *HR* Heparin 5,000 UNIT/ML VIAL SQ SCH ×2 (05:07→16:37)
[2021-11-11] MEDS: *HR* HYDROcodone/Acet 5/325 mg TABLET PO PRN ×4 (05:13→20:36)
[2021-11-11] MEDS: polyethylene glycoL 3350 17 GM POWD.PACK PO SCH (08:41)
[2021-11-11] MEDS: Piperacillin/Tazobactam 3.375 GM in 0.9 % Sodium Chloride Mini Bag 100 ML IVPB SCH ×2 (08:42→16:32)
[2021-11-11] MEDS: Nicotine 7 MG PATCH.TD24 TD SCH (08:43)
[2021-11-11] MEDS: Sennosides/Docusate Sodium TABLET PO SCH ×2 (08:44→20:38)
[2021-11-11] MEDS: Famotidine 20 MG TABLET PO SCH ×2 (08:44→20:38)
[2021-11-11] MEDS: levETIRAcetam 250 MG TABLET PO SCH ×2 (08:44→20:36)
[2021-11-11] MEDS: *HR* Amiodarone 200 MG TABLET PO SCH (08:44)
[2021-11-11] MEDS: Metoprolol XL (24 HR) Succ 25 MG TAB.ER.24H PO SCH (08:44)
[2021-11-11] MEDS: clonazePAM 1 MG TABLET PO PRN (08:44)
[2021-11-11] MEDS ORDERED: SODIUM CHLORIDE IVPB ONE (15:00)
[2021-11-11] MEDS ORDERED: AMPICILLIN IVPB ONE (15:00)
[2021-11-11] MEDS ORDERED: SULBACTAM IVPB ONE (15:00)
[2021-11-11] MEDS ORDERED: LOK IVPB ONE (15:00)
[2021-11-11] MEDS: Melatonin 3 MG TABLET PO SCH (20:38)
[2021-11-12] MEDS: Piperacillin/Tazobactam 3.375 GM in 0.9 % Sodium Chloride Mini Bag 100 ML IVPB SCH ×3 (00:32→17:45)
[2021-11-12] MEDS: *HR* HYDROcodone/Acet 5/325 mg TABLET PO PRN ×4 (00:35→17:41)
[2021-11-12 02:50] LABS: Hematocrit 27.4 % (37.5-50.1); Hemoglobin 8.5 g/dL (12.9-16.9); Mean Corpuscular Hemoglobin 27.3 pg (28.0-33.3); Mean Corpuscular Volume 88.1 fL (83.0-100.0); Mean Platelet Volume 11.2 fL (9.4-12.4); Platelet Count 440 K/mcL (140-400); Red Blood Count 3.11 M/mcL (4.19-5.50); Red Cell Distribution Width 21.3 % (11.5-14.5); White Blood Count 10.1 K/mcL (4.3-11.1)
[2021-11-12 03:19] LABS: BUN/Creatinine Ratio 25 (6-26); Blood Urea Nitrogen 15 mg/dL (8-23); Calcium 7.9 mg/dL (8.6-10.3); Carbon Dioxide 27 mEq/L (23-29); Chloride 100 mEq/L (98-107); Glucose 99 mg/dL (70-105); Osmolality,Calculated 275 (280-300); Potassium 3.9 mEq/L (3.5-5.1); Sodium 132 mEq/L (136-145)
[2021-11-12] MEDS: *HR* Heparin 5,000 UNIT/ML VIAL SQ SCH ×2 (04:30→17:41)
[2021-11-12] MEDS: polyethylene glycoL 3350 17 GM POWD.PACK PO SCH (08:08)
[2021-11-12] MEDS: Nicotine 7 MG PATCH.TD24 TD SCH (08:09)
[2021-11-12] MEDS: levETIRAcetam 250 MG TABLET PO SCH ×2 (08:09→20:39)
[2021-11-12] MEDS: Metoprolol XL (24 HR) Succ 25 MG TAB.ER.24H PO SCH (08:09)
[2021-11-12] MEDS: clonazePAM 1 MG TABLET PO PRN ×2 (08:10→20:39)
[2021-11-12] MEDS: Famotidine 20 MG TABLET PO SCH ×2 (08:10→20:39)
[2021-11-12] MEDS: *HR* Amiodarone 200 MG TABLET PO SCH (08:10)
[2021-11-12] MEDS: Sennosides/Docusate Sodium TABLET PO SCH ×2 (08:10→20:38)
[2021-11-12] MEDS ORDERED: AMPICILLIN IVPB ONE ×2 (11:00)
[2021-11-12] MEDS ORDERED: Ampicillin/Sulbactam 3,000 MG in 0.9 % Sodium Chloride Mini Bag 100 ML IVPB ONE (11:00)
[2021-11-12] MEDS ORDERED: SODIUM CHLORIDE IVPB ONE ×3 (11:00)
[2021-11-12] MEDS ORDERED: PIPERACILLIN IVPB ONE (11:00)
[2021-11-12] MEDS ORDERED: SULBACTAM IVPB ONE ×2 (11:00)
[2021-11-12] MEDS ORDERED: TAZOBACTAM IVPB ONE (11:00)
[2021-11-12] MEDS ORDERED: LOK IVPB ONE ×3 (11:00)
[2021-11-12] MEDS ORDERED: Lidocaine -MPF 1% 5 ML AMPUL ID ONE (11:45)
[2021-11-12] MEDS: Melatonin 3 MG TABLET PO SCH (20:39)
[2021-11-13] MEDS: Piperacillin/Tazobactam 3.375 GM in 0.9 % Sodium Chloride Mini Bag 100 ML IVPB SCH (00:06)
[2021-11-13] MEDS ORDERED: QUEtiapine Fumarate 25 MG TABLET PO PRN (01:09)
[2021-11-13] MEDS ORDERED: Water for inj. (sterile) 10 ML ONE (02:45)
[2021-11-13] MEDS: OLANZapine 10 MG VIAL IM ONE ×2 (02:59→03:00)
[2021-11-13 03:44] LABS: Hematocrit 30.6 % (37.5-50.1); Hemoglobin 9.7 g/dL (12.9-16.9); Mean Corpuscular HGB Conc 31.7 g/dL (31.6-35.5); Mean Corpuscular Hemoglobin 27.8 pg (28.0-33.3); Mean Corpuscular Volume 87.7 fL (83.0-100.0); Mean Platelet Volume 11.1 fL (9.4-12.4); Platelet Count 510 K/mcL (140-400); Red Blood Count 3.49 M/mcL (4.19-5.50); Red Cell Distribution Width 21.4 % (11.5-14.5); White Blood Count 12.9 K/mcL (4.3-11.1)
[2021-11-13] MEDS: *HR* HYDROcodone/Acet 5/325 mg TABLET PO PRN ×2 (03:58→08:38)
[2021-11-13 04:00] LABS: BUN/Creatinine Ratio 23 (6-26); Blood Urea Nitrogen 18 mg/dL (8-23); Carbon Dioxide 26 mEq/L (23-29); Chloride 100 mEq/L (98-107); Glucose 92 mg/dL (70-105); Osmolality,Calculated 276 (280-300); Potassium 3.9 mEq/L (3.5-5.1); Sodium 132 mEq/L (136-145)
[2021-11-13] MEDS: *HR* Heparin 5,000 UNIT/ML VIAL SQ SCH ×2 (06:16→17:32)
[2021-11-13] MEDS: polyethylene glycoL 3350 17 GM POWD.PACK PO SCH (08:35)
[2021-11-13] MEDS: Nicotine 7 MG PATCH.TD24 TD SCH (08:36)
[2021-11-13] MEDS: Metoprolol XL (24 HR) Succ 25 MG TAB.ER.24H PO SCH (08:38)
[2021-11-13] MEDS: Famotidine 20 MG TABLET PO SCH ×2 (08:38→19:44)
[2021-11-13] MEDS: Sennosides/Docusate Sodium TABLET PO SCH ×2 (08:38→19:44)
[2021-11-13] MEDS: *HR* Amiodarone 200 MG TABLET PO SCH (08:38)
[2021-11-13] MEDS: clonazePAM 1 MG TABLET PO PRN ×2 (08:38→23:20)
[2021-11-13] MEDS: levETIRAcetam 250 MG TABLET PO SCH ×2 (08:39→19:44)
[2021-11-13] MEDS ORDERED: Gadolinium Contrast Agent (WT Based) IV PRN (10:59)
[2021-11-13] MEDS ORDERED: Iopamidol - 370 500 ML MLS IVP ONE (12:35)
[2021-11-13] MEDS ORDERED: GADOBUTROL 30 MMOL/30 ML VIAL IVP ONE (13:20)
[2021-11-13] MEDS: Melatonin 3 MG TABLET PO SCH (19:44)
[2021-11-13] MEDS ORDERED: QUEtiapine Fumarate 25 MG TABLET PO SCH (21:00)
[2021-11-13] MEDS ORDERED: *HR* LORazepam 2 MG/ML VIAL IVP ONE (23:59)
[2021-11-14] MEDS: *HR* Heparin 5,000 UNIT/ML VIAL SQ SCH (05:13)
[2021-11-14 08:31] LABS: BUN/Creatinine Ratio 28 (6-26); Blood Urea Nitrogen 19 mg/dL (8-23); Calcium 8.6 mg/dL (8.6-10.3); Carbon Dioxide 27 mEq/L (23-29); Chloride 100 mEq/L (98-107); Glucose 130 mg/dL (70-105); Osmolality,Calculated 276 (280-300); Sodium 131 mEq/L (136-145)
[2021-11-14 08:37] LABS: Hematocrit 33.4 % (37.5-50.1); Hemoglobin 10.5 g/dL (12.9-16.9); Mean Corpuscular HGB Conc 31.4 g/dL (31.6-35.5); Mean Corpuscular Hemoglobin 27.9 pg (28.0-33.3); Mean Corpuscular Volume 88.8 fL (83.0-100.0); Mean Platelet Volume 10.8 fL (9.4-12.4); Platelet Count 557 K/mcL (140-400); Red Blood Count 3.76 M/mcL (4.19-5.50); Red Cell Distribution Width 22.2 % (11.5-14.5); White Blood Count 11.5 K/mcL (4.3-11.1)
[2021-11-14] MEDS: Sennosides/Docusate Sodium TABLET PO SCH (08:57)
[2021-11-14] MEDS: *HR* Amiodarone 200 MG TABLET PO SCH (08:58)
[2021-11-14] MEDS: Nicotine 7 MG PATCH.TD24 TD SCH (08:58)
[2021-11-14] MEDS: levETIRAcetam 250 MG TABLET PO SCH (08:58)
[2021-11-14] MEDS: Famotidine 20 MG TABLET PO SCH (08:58)
[2021-11-14] MEDS: polyethylene glycoL 3350 17 GM POWD.PACK PO SCH (09:00)
[2021-11-14] MEDS: Metoprolol XL (24 HR) Succ 25 MG TAB.ER.24H PO SCH (09:09)
[2021-11-14] MEDS: clonazePAM 1 MG TABLET PO PRN (09:22)
[2021-11-14] MEDS ORDERED: Milk and Molasses Enema 200 ML RC ONE (10:45)
[2021-11-14] MEDS: *HR* HYDROcodone/Acet 5/325 mg TABLET PO PRN (11:22)
[2021-11-14 14:11] VITALS: BP 99/71; PULSE 72; TEMP 98.9; O2SAT 95
== END 2021-11-14 15:17 | disposition home health service (06) | DRG 710 ==
LOC: 3NENU 14:21 → EMEROOARM 14:21 → 3NENU 18:45 → SUATTDRO 10-30 08:13 → ICNU 10-31 05:58 → 2NNU 11-06 23:01
PROVIDERS: ADMIT Internal Medicine; ATTEND Internal Medicine